=== PATIENT | female | born 1935 | race Caucasian/White ===

== ENCOUNTER 2018-08-03 06:32 | Day surgery (SDC) | payer MEDICARE, BC ==
[~2018-08-03] VITALS: Ht 157.5 cm; Wt 68.2 kg
--- NOTE | ~2018-08-03 | OP ---
PATIENT NAME: J CARLOS MARTINEZ MEDICAL RECORD: [id number] :33 LOCATION:D.OPS ADMISSION DATE: SURGEON: ARLENE POSADA DPM DATE OF OPERATION: 08/03/2018 PREOPERATIVE DIAGNOSES: 1. HAV, right foot. 2. Hammertoe, right second digit. POSTOPERATIVE DIAGNOSES: 1. HAV, right foot. 2. Hammertoe, right second digit. PROCEDURES: 1. Sohail bunionectomy, right foot. 2. PIPJ fusion, right second digit with sequential reduction. ANESTHESIA: General with local infiltrate utilizing lidocaine and Marcaine plain around the first and second ray of the right foot. HEMOSTASIS: Right ankle tourniquet at 250 mmHg. PREOPERATIVE DETAILS: The patient was taken to the OR and placed in the operating table in a supine position. This was followed by induction of general anesthesia and infiltration of local anesthetic. The right extremity was then prepped and draped in the usual aseptic technique, followed by exsanguination and inflation of tourniquet. PROCEDURE #1: Sohail bunionectomy, right foot: A 15 blade was used to create a 3.5-cm linear incision over the dorsal aspect of the first ray extending to the base of proximal phalanx of the hallux. The incision was deepened down through subcutaneous tissue being sure to avoid all vital structures. Dissection was carried down to the first MPJ where an inverted L capsulotomy was performed. The medial capsular flap was reflected and the head of the first metatarsal was delivered. Sagittal saw was used to resect the medial eminence. Attention was then redirected to the first interspace where a lateral release was performed. Good clinical reduction of lateral contracture was verified. Attention was then redirected to the medial aspect of the head of first metatarsal, where a sagittal saw was used to create a V-osteotomy [id number] the capital fragment and was translocated laterally and fixated with a 0.062 inch K-wire. The pin was cut. Excellent alignment was noted. The medial redundant shelf was resected with a sagittal saw and the wound was flushed. A 2-0 Vicryl was used to repair the joint capsule, followed by closure of the subcutaneous tissue with 4-0 Rapide and the skin was closed with 4-0 Rapide in a subcuticular technique followed by Dermabond. PROCEDURE #2: PIPJ fusion, right second digit with sequential reduction: A 15-blade was used to create an incision on the dorsal aspect of the second digit extending from the middle phalanx just proximal to the second MPJ. The incision was deepened down through subcutaneous tissue being sure to avoid all vital structures. The extensor longus tendon was then transected in a Z fashion exposing the head of the proximal phalanx, base of the middle phalanx as well as the second MPJ. There was noted to be contracture at the second MPJ. Therefore, a dorsal capsulotomy was performed, followed by use of McGlamry scoop elevator to release the plantar structures. This allowed proper plantar flexion OPERATIVE REPORT [id number] J CARLOS MARTINEZ of the proximal phalanx on the metatarsal. At this time, a sagittal saw was used to resect the head of the proximal phalanx to the base of middle phalanx. A drill hole was made in both, followed by insertion of a bone graft in the proximal phalanx as well as the capital fragment of the middle phalanx was placed on top of the bone graft impacting the fusion site noting excellent alignment as well as rigid internal fixation. The wound was flushed. The extensor longus tendon was repaired with 4-0 Rapide, the subcutaneous tissue was reapproximated with 4-0 Rapide, and the skin was closed with 4-0 Rapide in a subcuticular technique followed by Dermabond. Adaptic, 4 x 4, and Conform used to dress the wound, followed by Coban. Tourniquet was deflated. POSTOPERATIVE DETAILS: The patient tolerated the procedures well and left the OR with vital signs stable and vascular status at preoperative levels. The patient was transported to recovery per anesthesia in stable condition. TRANSINT:[id number] Voice Confirmation ID: [id number] DOCUMENT ID: [id number] ARLENE POSADA DPM at 0914 CC: [id number] DICTATION DATE: 08/03/18 1125 [place] SUPERVISOR: 08/03/18 1248 [facility] [place] 08/03/18 [place] [id number]
[2018-08-03 07:04] LABS: BASOPHILS 0.1 % (0-2); EOSINOPHILS 2.3 % (0-7); HEMATOCRIT 34.2 % (36.0-48.0); HEMOGLOBIN 11.7 g/dL (12-16); IMMATURE GRANULOCYTES 0.3 % (0-5); LYMPHOCYTES 28.3 % (15-50); MCHC 34.2 g/dL (31.0-37.0); MCV 84.7 fL (80.0-100.0); MEAN PLATELET VOLUME 11.3 fL (7.4-10.4); MONOCYTES 9.9 % (2-11); NEUTROPHILS 59.1 % (40-80); PLATELET COUNT 177 10x3/uL (130-400); RBC 4.04 10x6/uL (4.00-5.40); RDW 12.9 % (11.5-14.5)
[2018-08-03 07:15] LABS: ANION GAP 12.8 mmol/L (8-16); CALCIUM 8.8 mg/dL (8.5-10.1); CARBON DIOXIDE 27.6 mmol/L (21.0-32.0); CREATININE - SERUM 1.1 mg/dL (0.6-1.3); POTASSIUM - SERUM 4.4 mmol/L (3.5-5.1)
[2018-08-03] MEDS ORDERED: PRINIVIL20 MG PO (07:46)
[2018-08-03] MEDS ORDERED: KEPPRA500 MG PO (07:47)
[2018-08-03] MEDS ORDERED: HYDROCHLOROTHIA25 MG PO (07:48)
[2018-08-03] MEDS ORDERED: KEPPRA1000 MG PO (07:48)
[2018-08-03] MEDS ORDERED: CARAFATE1 G PO (07:49)
[2018-08-03] MEDS ORDERED: ZOLOFT25 MG PO (07:49)
[2018-08-03] MEDS ORDERED: TIAZAC/CARDIZE180 MG PO (07:50)
[2018-08-03 08:01] VITALS: BP 121/62; Ht 157.5 cm; Wt 68.2 kg
== END 2018-08-03 13:40 | disposition home or self-care (01) ==
LOC: D.OPS 06:32 → D.PAN 09:00 → D.OPS 09:00
PROVIDERS: Anesthesiology
DX: M20.31 Hallux varus (acquired), right foot (principal); M20.41 Other hammer toe(s) (acquired), right foot